=== PATIENT | female | born 1950 | race Caucasian/White ===

== ENCOUNTER → 2017-01-09 | Outpatient (CLI) | payer OTHER | LOC: FIMAGING 09:38 | DX: Z12.31 Encounter for screening mammogram for malignant neoplasm of breast (principal); Z85.3 Personal history of malignant neoplasm of breast | CPT/HCPCS: G0202 ==

== ENCOUNTER 2017-10-02 10:43 | Emergency (ER) | payer OTHER ==
[2017-10-02 10:51] VITALS: RESP 18
--- NOTE | 2017-10-02 11:03 | CPEKG ---
Heart Rate: 61 RR Interval: 984 P-R Interval: 176 QRSD Interval: 86 QT Interval: 436 QTC Interval: 440 P [place]: 67 QRS [place]: 21 T Wave [place]: 18 EKG Severity - BORDERLINE ECG - EKG Impression: SINUS RHYTHM EKG Impression: PROBABLE LEFT ATRIAL ABNORMALITY Electronically Signed By: Yana Porras 02-Oct-2017 14:38:23
--- NOTE | 2017-10-02 11:12 | EDPHY ---
H & P Stated Complaint: DIZZY YESTERDAY/HX OF NEEDING CARDIAC STENT/NEEDS TO SCHEDULE - Personal History Current Tetanus/Diphtheria Vaccine: Yes - Medical/Surgical History Hx Asthma: No Hx Chronic Respiratory Disease: No Hx Diabetes: No Hx Cardiac Disease: Yes Hx Renal Disease: No Hx Cirrhosis: No Hx Alcoholism: No Hx HIV/AIDS: No Hx Splenectomy or Spleen Trauma: No Other PMH: BREAST CANCER - Social History Smoking Status: Never smoked Time Seen by Provider: 10/02/17 11:03 HPI/ROS: CHIEF COMPLAINT: "I'm lightheaded " HISTORY OF PRESENT ILLNESS: 66-year-old female arrives via private vehicle stating that last evening had approximately 8:00 p.m. while she was getting ready for bed she had sudden onset of feeling lightheaded. Not described as dizziness. This has by enlarged resolved but still continues a mild level. At no point has she experience syncope or near syncope, chest pain, dyspnea, headache, visual disturbance, gait instability, slurred speech, hearing loss or tinnitus. Patient saw her primary care provider who recommend she come to the ER for evaluation. Patient states that she has been seen by Dr. Mikael Saleem in the past as she has a family history of cardiac disease although the patient notes that she has never had WI or anginal equivalent. States that she exercises regularly, most recently exercise yesterday, 40 min of cardiovascular activity at which point she did not experience chest pain or dyspnea with exertion. PRIMARY CARE PROVIDER: Dr. Youssef Spine REVIEW OF SYSTEMS: A ten point review of systems was performed and is negative with the exception of the items mentioned in the HPI PAST MEDICAL & SURGICAL HISTORY: No WI history SOCIAL HISTORY: nonsmoker. No drug use PHYSICAL EXAM (Prior to examination, patient consented to physical exam, hands were washed and my usual and customary physical exam procedures followed) 1) GENERAL: Well-developed, well-nourished, alert and oriented. Appears to be in no acute distress. 2) HEAD: Normocephalic, atraumatic 3) HEENT: Pupils equal, round, reactive to light bilaterally. Sclera anicteric. Nasopharynx, oropharynx, clear, no lesions. Ears bilaterally with normal tympanic membranes. 4) NECK: Full range of motion, no meningeal signs. No carotid bruit 5) LUNGS: Clear auscultation bilaterally, no wheezes, no rhonchi, no retractions. 6) HEART: Regular rate and rhythm, no murmur, no heave, no gallop. 7) ABDOMEN: No guarding, no rebound, no focal tenderness, negative McBurney's, negative Ash's, negative Rovsing's, negative peritoneal sign, 8) MUSCULOSKELETAL: Moving all extremities, no focal areas of tenderness, no obvious trauma. No peripheral edema or discoloration. 9) BACK: No CVA tenderness, no midline vertebral tenderness, no fluctuance, no step-off, no obvious trauma, no visual or palpable abnormality. 10) SKIN: No rash, no petechiae. 11) Psychiatric: Patient is oriented X 3, there is no agitation. 12) NEURO: Awake, alert, and oriented to person, place and time. Answers questions appropriately. There were no obvious focal neurologic abnormalities. No cerebellar dysfunction. Cranial nerves 2 through to 12 intact. Normal steady gait. Upper and lower extremities bilaterally with strength 5 / 5, reflexes 2+. DIFFERENTIAL DIAGNOSIS: in no particular include but limited to CVA, WI, cardiac arrhythmia, vertigo, malignancy (Jose Angel,Epifanio Yaritza) Constitutional: Initial Vital Signs Temperature (C) 36.4 C 10/02/17 10:48 Heart Rate 64 10/02/17 10:48 Respiratory Rate 18 10/02/17 10:48 Blood Pressure 174/90 H 10/02/17 10:48 O2 Sat (%) 95 10/02/17 10:48 O2 Delivery Mode Room Air Allergies/Adverse Reactions: ampicillin Allergy (Verified 10/02/17 10:45) atorvastatin Allergy (Verified 10/02/17 10:46) Home Medications: Medication Instructions Recorded ALENDRONATE SODIUM 10/02/17 Crestor 10/02/17 Hydrochlorothiazide 10/02/17 Losartan Potassium 10/02/17 Synthroid 10/02/17 Vitamins And Supplements 10/02/17 Medical Decision Making ED Course/Re-evaluation: 11:12 a.m.:Care of patient under supervision of secondary supervising physician Dr Porras with whom I discussed care. Doubt CVA at this time. 12:30 p.m.: Patient has been re-evaluated with serial exams. Discussed her imaging and diagnostic results. She is asymptomatic. The patient was also seen and examined by Dr. Porras in the ER. Doubt CVA, doubt TIA, doubt WI. She is noted to be hypertensive at this time at 182/111. Plan will be consultation with her primary care provider. 1:05 p.m.: Dr. Porras have evaluated the patient independently, see her note. The patient has a nonfocal neurologic exam, no headache, no gait instability, no slurred speech either currently or last evening. I think that CVA, TIA, less than likely this patient at this time. I do not identify definitive indication for emergent imaging studies, however this may be indicated on outpatient basis to be decided by her primary care provider. We did discuss her hypertension and I consulted with her primary care provider NEPTALI Hayes at Dr Mikael Wilson's office and we discussed raising the patient's losartan dose. I recommend close follow up with primary care provider tomorrow. In the meantime if the patient develops chest pain, headache, gait instability or any other neurologic complaints to return to the ER immediately for re-evaluation. Patient feels comfortable being discharged. All questions and concerns addressed by myself. (Epifanio Walter) This patient was seen and examined by me. She is currently asymptomatic. Chest clear to auscultation, cardiovascular-regular rhythm and rate. Neurologic exam is normal and I do not suspect TIA/CVA in this patient. She continues to be hypertensive, with a blood pressure of 185/112. I suspect that her dizziness is related to elevated blood pressure. We will increase her losartan. I do not think that the dizziness is a symptom of cardiac ischemia. She has had prolonged nonexertional symptoms, greater than 12 hr, with a normal EKG and troponin. I agree with the assessment and plan. (Yana Porras) - Data Points Laboratory Results: Laboratory Results 10/02/17 11:10 10/02/17 11:10 Departure - Departure Disposition: Home, Routine, Self-Care Clinical Impression: Light-headed feeling, Hypertension Condition: Good Instructions: Hypertension (ED) Additional Instructions: Return to the emergency department medial if you develop headache, trouble walking, chest pain, trouble breathing or any other symptoms that concern you. Recommend you increase your Losartan to 50 mg once daily. Referrals: Mikael Wilson, DO [Primary Care Provider] - 1 day without fail
[2017-10-02 11:50] LABS: % IMMATURE GRANULYOCYTES 0.2 % (0.0-1.1); ABSOLUTE IMMATURE GRANULOCYTES 0.01 10^3/uL (0.00-0.10); ADD DIFF? NO; ADD MORPH? NO; ADD SCAN? NO; ATYPICAL LYMPHOCYTE FLAG 10 (0-99); FRAGMENT RBC FLAG 0 (0-99); HEMATOCRIT 44.5 % (38.0-47.0); LEFT SHIFT FLG 0 (0-99); LIPEMIA HEMOLYSIS FLAG 90 (0-99); MEAN CELL HEMOGLOBIN 33.5 pg (27.9-34.1); MEAN CELL VOLUME 93.3 fL (81.5-99.8); MEAN PLATELET VOLUME 10.7 fL (8.7-11.7); PLATELET CLUMPS FLAG 0 (0-99); PLATELET COUNT 226 10^3/uL (150-400); RED BLOOD CELL COUNT 4.77 10^6/uL (4.18-5.33); RED CELL DISTRIBUTION WIDTH 12.4 % (11.5-15.2)
[2017-10-02 11:52] LABS: ANION GAP 14 mEq/L (8-16); CALCIUM 10.3 mg/dL (8.5-10.4); CARBON DIOXIDE 28 mEq/l (22-31); CHLORIDE 100 mEq/L (97-110); GLOMERULAR FILTRATION RATE 55; GLUCOSE 101 mg/dL (70-100); POTASSIUM 3.6 mEq/L (3.5-5.2); SODIUM 142 mEq/L (134-144)
[2017-10-02 12:02] LABS: TROPONIN I < 0.012 ng/mL (0.000-0.034)
[2017-10-02 12:10] VITALS: O2SAT 94
[2017-10-02 13:03] VITALS: BP 147/107; PULSE 62
[2017-10-02 13:21] VITALS: TEMP 98.4
== END 2017-10-02 13:23 | disposition home or self-care (01) ==
DX: R42 Dizziness and giddiness (principal); I10 Essential (primary) hypertension; Z85.3 Personal history of malignant neoplasm of breast

== ENCOUNTER 2017-10-16 11:05 | Day surgery (SDC) | payer OTHER ==
[2017-10-16] MEDS ORDERED: FAMOTIDINE 20 MG TAB PO ONE (11:10)
[2017-10-16] MEDS ORDERED: NS 1,000 ML IV ONE (11:10)
[2017-10-16] MEDS ORDERED: diphenhydrAMINE 25 MG CAP PO ONE ×2 (11:10→12:03)
[2017-10-16] MEDS ORDERED: ASPIRIN EC 325 MG TAB PO ONE ×2 (11:10→12:03)
[2017-10-16] MEDS ORDERED: DIAZEPAM 5 MG TAB PO ONE (11:10)
--- NOTE | 2017-10-16 11:43 | CPEKG ---
Heart Rate: 67 RR Interval: 896 P-R Interval: 172 QRSD Interval: 86 QT Interval: 424 QTC Interval: 448 P [place]: 76 QRS [place]: 51 T Wave [place]: 18 EKG Severity - NORMAL ECG - EKG Impression: SINUS RHYTHM EKG Impression: COMPARED WITH 10/02/2017 NO SIGNIFICANT CHANGE Electronically Signed By: Sakshi Tyler 16-Oct-2017 18:55:26
[2017-10-16 11:55] LABS: % IMMATURE GRANULYOCYTES 0.3 % (0.0-1.1); ABSOLUTE IMMATURE GRANULOCYTES 0.02 10^3/uL (0.00-0.10); ADD DIFF? NO; ADD MORPH? NO; ADD SCAN? NO; ATYPICAL LYMPHOCYTE FLAG 0 (0-99); FRAGMENT RBC FLAG 0 (0-99); HEMATOCRIT 42.9 % (38.0-47.0); HEMOGLOBIN 15.5 g/dL (12.6-16.3); LEFT SHIFT FLG 0 (0-99); LIPEMIA HEMOLYSIS FLAG 90 (0-99); MEAN CELL HEMOGLOBIN 33.1 pg (27.9-34.1); MEAN CELL HEMOGLOBIN CONCENTR. 36.1 g/dL (32.4-36.7); MEAN CELL VOLUME 91.7 fL (81.5-99.8); PLATELET CLUMPS FLAG 10 (0-99); PLATELET COUNT 196 10^3/uL (150-400); RED BLOOD CELL COUNT 4.68 10^6/uL (4.18-5.33); RED CELL DISTRIBUTION WIDTH 12.4 % (11.5-15.2)
[2017-10-16] MEDS ORDERED: DIAZEPAM 5 MG TAB ONE (12:03)
[2017-10-16] MEDS ORDERED: FAMOTIDINE 20 MG TAB ONE (12:03)
[2017-10-16 12:08] LABS: INR 1.02 (0.83-1.16); PROTIME(PATIENT) 13.6 SEC (12.0-15.0)
[2017-10-16 12:10] LABS: ANION GAP 14 mEq/L (8-16); CALCIUM 9.9 mg/dL (8.5-10.4); CARBON DIOXIDE 25 mEq/l (22-31); CHLORIDE 104 mEq/L (97-110); CHOLESTEROL 157 mg/dL (140-220); GLOMERULAR FILTRATION RATE 55; GLUCOSE 92 mg/dL (70-100); HIGH DENSITY LIPOPROTEIN 49 mg/dL (40-85); LDL/HDL RATIO 1.41 RATIO (1.00-3.22); LOW DENSITY LIPOPROTEIN 69 mg/dL (80-100); MAGNESIUM 1.8 mg/dL (1.6-2.3); NON-HIGH DENSITY LIPOPROTEIN 108 mg/dL (90-129); POTASSIUM 3.9 mEq/L (3.5-5.2); SODIUM 143 mEq/L (134-144); TRIGLYCERIDE 199 mg/dL (35-135); VERY LOW DENSITY LIPOPROTEINS 39 mg/dL (8-25)
[2017-10-16] MEDS ORDERED: LIDOCAINE 1% 300 MG/30 ML SDV ONE (13:13)
[2017-10-16] MEDS ORDERED: fentaNYL 100 MCG/2 ML INJ ONE (13:13)
[2017-10-16] MEDS ORDERED: IOPAMIDOL (ISOVUE-370) 150 ML BTL IV ONE (13:14)
[2017-10-16] MEDS ORDERED: MIDAZOLAM 2 MG/2 ML VIAL ONE (13:14)
--- NOTE | 2017-10-16 13:23 | PDPROPOC ---
Sedation Plan of Care Sedation Plan of Care: vital signs stable, mental status noted, patient educated of risks, benefits, alternatives, patient can tolerate sedation ASA Classification: ASA 2 Planned drugs: fentanyl, midazolam Mallampati Score: Class 2 Mallampati Reference Image: Patient passed 3-3-2 rule?: Yes
--- NOTE | 2017-10-16 13:23 | PDHPUP ---
History & Physical Update H&P update statement: This history and physical update is based on an assessment of the patient which was completed after admission or registration (within 24 hours), but prior to the surgery/procedure. H&P update: H&P reviewed & patient examined, no change in patient's condition since H&P completed
[2017-10-16] MEDS ORDERED: HYDROCODONE/APAP 5/325 TAB PO PRN (14:16)
[2017-10-16] MEDS ORDERED: OXYCODONE/APAP 5/325 TAB PO PRN (14:16)
[2017-10-16] MEDS ORDERED: NITROGLYCERIN 0.4 MG BTL SL PRN (14:16)
[2017-10-16] MEDS ORDERED: ONDANSETRON 4 MG/2 ML VIAL IVP PRN (14:16)
[2017-10-16] MEDS ORDERED: ATROPINE SULFATE 1 MG/10 ML SYR IVP PRN (14:16)
[2017-10-16] MEDS ORDERED: CLINDAMYCIN HCL 600 MG PO PRN (14:18)
--- NOTE | 2017-10-16 19:16 | CPIP ---
[f rep st] INVASIVE CARDIAC PROCEDURE DATE OF PROCEDURE: 10/16/2017 PROCEDURE: 1. Coronary angiography. 2. Left ventriculography. INDICATION: 1. Chest pain consistent with class 2-3 angina. 2. Abnormal nuclear stress test that is low to intermediate risk. ACCESS: Patient was prepped and draped in sterile fashion. 1% lidocaine was used to anesthetize the right inguinal region. A 6-[place]anese introducer sheath was placed selectively into the right common fe moral artery via modified Seldinger technique. CORONARY ANGIOGRAPHY: A 6-[place] JL4 was advanced to the left main coronary artery and images obtain ed. The left main coronary artery bifurcated into an LAD and circumflex coronary arteries. The left main coronary artery appeared normal. The left anterior descending coronary artery gave rise to 2 s mall to moderate size diagonal branches. The left anterior descending coronary artery had diffuse di sease in the proximal segment. In the proximal 2 segment of the vessel, there is a discrete 30% sten osis present. The diagonal arteries were free of any significant disease. The circumflex coronary a rtery is a large vessel, but was nondominant. Circumflex coronary artery had a 30% stenosis in the m id vessel. The first OM artery was extremely large. The first OM artery had mild luminal irregulari ties throughout. There was no stenosis greater than 15% to 20%. A 6-[place] JR4 was advanced to the right coronary artery and images obtained. The right coronary artery had mild diffuse disease in the proximal mid segments. There was no stenosis greater than 20%. LEFT VENTRICULOGRAPHY: A 6-[place] pigtail catheter was advanced in the left ventricle and images obt ained. Left ventricle is normal in size and normal systolic function. Estimated ejection fraction o f 70%. COMPLICATIONS: None. CONCLUSIONS: 1. Apeo-[id number] coronary artery disease without flow limitation. 2. Normal left ventricular size and systolic function. 3. Plan is for medical management. /[id number]/MODL
[2017-10-17] MEDS ORDERED: LEVOTHYROXINE 25 MCG TAB PO SCH (06:00)
[2017-10-17] MEDS ORDERED: MAGNESIUM OXIDE 400 MG TAB PO SCH (09:00)
[2017-10-17] MEDS ORDERED: CHOLECALCIFEROL VIT D3 2,000 UNITS TAB/CAP PO SCH (09:00)
[2017-10-17] MEDS ORDERED: LOSARTAN POTASSIUM 25 MG TAB PO SCH (09:00)
[2017-10-17] MEDS ORDERED: ROSUVASTATIN CALCIUM 10 MG TAB PO SCH (09:00)
[2017-10-17] MEDS ORDERED: HYDROCHLOROTHIAZIDE 25 MG TAB PO SCH (09:00)
[2017-10-17] MEDS ORDERED: POTASSIUM CL 20 MEQ TAB PO SCH (09:00)
[2017-10-17] MEDS ORDERED: CYANO/VITAMIN B12 1000 MCG TAB PO SCH (09:00)
[2017-10-17] MEDS ORDERED: OMEGA-3 FATTY ACIDS 1,000 MG CAP PO SCH (09:00)
[2017-10-17] MEDS ORDERED: ASPIRIN 81 MG CHEWABLE TAB PO SCH (09:00)
[2017-10-22] MEDS ORDERED: ALENDRONATE SODIUM 70 MG TAB PO SCH (07:00)
== END 2017-10-16 19:50 | disposition home or self-care (01) ==
LOC: FCATH 11:05
PROVIDERS: ATTEND Internal Medicine Cardiovascular Disease
PROC: 4A023N7 Measurement of Cardiac Sampling and Pressure, Left Heart, Percutaneous Approach (ICD-10-PCS; principal; 2017-10-16)
PROC: B2111ZZ Fluoroscopy of Multiple Coronary Arteries using Low Osmolar Contrast (ICD-10-PCS; principal; 2017-10-16)
PROC: B2151ZZ Fluoroscopy of Left Heart using Low Osmolar Contrast (ICD-10-PCS; principal; 2017-10-16)
DX: I25.10 Atherosclerotic heart disease of native coronary artery without angina pectoris (principal); R07.9 Chest pain, unspecified; R94.39 Abnormal result of other cardiovascular function study; I10 Essential (primary) hypertension; E03.9 Hypothyroidism, unspecified; E78.5 Hyperlipidemia, unspecified
CPT/HCPCS: J0461; J1644; J2250; J3010; Q9967

== ENCOUNTER → 2018-01-10 | Outpatient (CLI) | payer OTHER | LOC: FIMAGING 15:07 | PROVIDERS: ATTEND Family Medicine | DX: Z12.31 Encounter for screening mammogram for malignant neoplasm of breast (principal); Z85.3 Personal history of malignant neoplasm of breast ==

== ENCOUNTER → 2018-02-05 | Outpatient (CLI) | payer OTHER | LOC: FIMAGING 14:06 | PROVIDERS: ATTEND Physician Assistant Medical | DX: Z13.820 Encounter for screening for osteoporosis (principal); M81.0 Age-related osteoporosis without current pathological fracture; Z78.0 Asymptomatic menopausal state; Z79.890 Hormone replacement therapy ==

== ENCOUNTER → 2018-11-19 | Outpatient (CLI) | payer OTHER | LOC: BHCLAF 13:00 | PROVIDERS: ATTEND Internal Medicine Cardiovascular Disease | DX: I25.10 Atherosclerotic heart disease of native coronary artery without angina pectoris (principal); E78.5 Hyperlipidemia, unspecified; I10 Essential (primary) hypertension | CPT/HCPCS: 93005-PO ==

== ENCOUNTER → 2019-04-11 | Outpatient (CLI) | payer OTHER | LOC: FIMAGING 07:49 ==